=== PATIENT | male | born 2000 | race Hispanic/Latino ===

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

== ENCOUNTER 2022-12-28 04:04 | Emergency (ER) | payer MEDICAID ==
[~2022-12-28] VITALS: Ht 172.7 cm; Wt 86.2 kg
[2022-12-28 04:05] VITALS: BP 114/62
== END 2022-12-28 04:37 ==
LOC: EDH 04:04
DX: Z53.21 Procedure and treatment not carried out due to patient leaving prior to being seen by health care provider (principal)
CPT/HCPCS: 99281